=== PATIENT | male | born 1970 | race Hispanic/Latino ===

== ENCOUNTER 2020-02-09 22:44 | Observation (INO) | payer OTHER ==
[~2020-02-09] VITALS: Ht 180.3 cm; Wt 122.5 kg
[2020-02-09 23:06] LABS: BASOPHILS % 0.4 % (0.0-1.0); EOSINOPHILS # (AUTO) 0.1 (0.0-0.4); EOSINOPHILS % 1.1 % (0.0-6.0); HEMATOCRIT 41.4 % (38.2-49.6); HEMOGLOBIN 13.8 g/dL (14.0-18.0); LYMPHOCYTES # (AUTO) 2.1 (1.0-3.2); LYMPHOCYTES % 24.7 % (18.0-39.1); MEAN CORPUSCULAR HEMOGLOBIN 28.5 pg (28-32); MEAN CORPUSCULAR HGB CONC 33.3 g/dL (31-35); MEAN CORPUSCULAR VOLUME 85.4 fL (81-99); MONOCYTES # (AUTO) 0.7 (0.2-0.8); MONOCYTES % 8.3 % (4.4-11.3); NEUTROPHILS # (AUTO) 5.6 (2.1-6.9); RED BLOOD COUNT 4.85 x10e6/uL (4.3-5.7); RED CELL DISTRIBUTION WIDTH 13.7 % (11.7-14.4)
[2020-02-09 23:09] LABS: PLATELET COUNT 8 x10e3/uL (140-360)
[2020-02-09 23:23] LABS: ALANINE AMINOTRANSFERASE 27 IU/L (0-55); ALBUMIN 4.4 g/dL (3.5-5.0); ANION GAP 14.9 mmol/L (8-16); BLOOD UREA NITROGEN 14 mg/dL (7-26); BUN/CREATININE RATIO 15 (6-25); CALCIUM 9.4 mg/dL (8.4-10.2); CARBON DIOXIDE 21 mmol/L (22-29); CHLORIDE 111 mmol/L (98-107); CREATININE, SERUM 0.91 mg/dL (0.72-1.25); EST GLOMERULAR FILTRATION RATE > 60 ML/MIN (60-); GLUCOSE 131 mg/dL (74-118); POTASSIUM 3.9 mmol/L (3.5-5.1); SODIUM 143 mmol/L (136-145)
[2020-02-09 23:24] LABS: ALBUMIN/GLOBULIN RATIO 1.6 (0.8-2.0); ALKALINE PHOSPHATASE 56 IU/L (40-150)
--- OUTSIDE RECORDS SUMMARY | 2020-02-09 23:43 | XMS REPORT | Continuity of Care Document ---
Author Author [facility] Organization [facility] Address [address] [place] [address] Phone Unavailable Care Team Providers Care Operations And Maintenance Supervisor Name Role Phone NONSTAFF PCP Unavailable Deysi SHEARER Attphyajit Unavailable Payers Payer Name Policy Type Policy Number Effective Date Expiration Date Ajit Barbour o [id number] 2017 00:00:00 [facility] Problems This patient has no known problems. Allergies, Adverse Reactions, Alerts Allergy Name Allergy Type Status Severity Reaction(s) Onset Date Inacti ve Date Treating Clinician Comments Source No Known Allergies DA Active U 2019-11-08 00:00:00 [facility] No Known Allergies DA Active U 2016-10-02 00:00:00 [facility] Medications This patient has no known medications. Procedures Procedure Date / Time Performed Performing Clinician Sourc e Computed tomography of abdomen and pelvis with contrast 2018 00:00:00 BAUTISTA MAN [facility] Encounters Start Date/Time End Date/Time Encounter Type Admission Type Attendi [facility] Care Department Encounter ID Source 2018-11-29 16:32:00 2018-11-29 20:40:00 Departed Emergency Room 1 ZEHRA SHEARER [facility] [id number] [facility] Results Test Description Test Time Test Comments Results Result Comments Source GLUBED 2019-11-11 15:52:00 Test Item GLUBED (test code = GLUBED) 229 mg/dL 70-110 H [id number] 11:05:00* Test Item Value Reference Range Interpretation Comments GLUBED (test code = GLUBED) 141 mg/dL 70-110 H [id number] 07:07:00* Test Item Value Reference Range Interpretation Comments GLUBED (test code = GLUBED) 116 mg/dL 70-110 H [id number] 21:08:00* Test Item Value Reference Range Interpretation Comments GLUBED (test code = GLUBED) 239 mg/dL 70-110 H [id number] 15:36:00* Test Item Value Reference Range Interpretation Comments GLUBED (test code = GLUBED) 306 mg/dL 70-110 H [id number] 11:38:00* Test Item Value Reference Range Interpretation Comments GLUBED (test code = GLUBED) 142 mg/dL 70-110 H [id number] 07:48:00* Test Item Value Reference Range Interpretation Comments GLUBED (test code = GLUBED) 101 mg/dL 70-110 N BASIC METABOLIC [id number] 05:36:00* Test Item Value Reference Range Interpretation Comments SODIUM (test code = NA) 136 mmol/l 134.0-147.0 N POTASSIUM (test code = K) 4.0 mmol/L 3.6-5.2 N CHLORIDE (test code = CL) 103 mmol/l 98.0-107.0 N CARBON DIOXIDE (test code = CO2) 26.2 mmol/l 21.0-33.0 N ANION GAP (test code = GAP) 10.8 0-20 N GLUCOSE (test code = GLU) 129 mg/dl 70.0-110.0 H BLOOD UREA NITROGEN (test code = BUN) 15 mg/dl 7.0-18.0 N CREATININE (test code = CREAT) 0.91 mg/dL 0.60-1.30 N GFR NON BLACK (test code = GFRNONBLACK) 94 mL/min 95-105 L GFR BLACK (test code = GFRBLACK) 114 mL/min 115-127 L CALCIUM (test code = CA) 8.4 mg/dl 8.0-10.5 N [id number] 20:35:00* Test Item Value Reference Range Interpretation Comments GLUBED (test code = GLUBED) 214 mg/dL 70-110 H [id number] 15:22:00* Test Item Value Reference Range Interpretation Comments GLUBED (test code = GLUBED) 237 mg/dL 70-110 H [id number] 11:31:00* Test Item Value Reference Range Interpretation Comments GLUBED (test code = GLUBED) 164 mg/dL 70-110 H [id number] 07:37:00* Test Item Value Reference Range Interpretation Comments GLUBED (test code = GLUBED) 116 mg/dL 70-110 H [id number] 20:30:00* Test Item Value Reference Range Interpretation Comments GLUBED (test code = GLUBED) 215 mg/dL 70-110 H [id number] 16:36:00* Test Item Value Reference Range Interpretation Comments GLUBED (test code = GLUBED) 269 mg/dL 70-110 H LACTIC DEHYDROGENASE(LDH)2019-11-08 14:31:00* Test Item Value Reference Range Interpretation Comments LACTIC DEHYDROGENASE(LDH) (test code = LDH) 476 Units/L 81-234 H [id number] 14:31:00* Test Item Value Reference Range Interpretation Comments FERRITIN (test code = STEFANO) 1760 ng/mL 23.9-336.2 H C REACTIVE [id number] 13:56:00* Test Item Value Reference Range Interpretation Comments C REACTIVE PROTEIN (test code = CRP) 4.7 mg/dL 0.0-0.9 H PLEASE MAKE NOTE OF NEW CRP REFERENCE RANGE D-[id number] 12:42:00* Test Item Value Reference Range Interpretation Comments D-DIMER/FSP (test code = DDIMER) 558 ng/mLFEU 0-500 HH Thrombosis and/or Pulmonary Embolism and the clinicalcut-off value for exclusion (500 ng/mL FEU) of theseconditions is validated by the metallurgical technician of the method. A negative D- Dimer result when combined with a clinicalassessment of low pretest probability has been shown to havea high negative predictive value of DVT or PE. D-Dimer values >500 ng/mL FEU are not diagnostic for DVT,PE, or DIC without other confirmatory tests and appropriateclinical evaluations. - XR CHEST 1 [id number] 12:24:00 FAX: Shital Hutchinson MD [phone] [place]: EM St: ADM FAX: Cecilia Turk [phone] Name: ADDISON BALTAZAR [facility] : 1970 Age/S: 49/M [address] [facility] Unit #: [id number] Loc: [address] [place] [address] Phys: [place] [id number] Acct: [id number] Dis Date: Status: ADM IN PHONE #: [phone] Exam Date: 11/08/2019 1210 FAX #: [phone] Reason: covid penumonia EXAMS: CPT CODE: [id number] XR CHEST 1 V 82979 EXAMINATION: - XR CHEST 1 V. LOCATION: U19. HISTORY: COVID pneumonia, hypoxia. COMPARISON: Chest x-ray 11/04/19. FINDINGS: Examination is limited due to portable technique and patient body habitus. Cardiac silhouette/Mediastinal contour: Persistent enlargement of cardiac silhouette. Atherosclerotic calcification of aortic arch. Lungs: Minimal interval worsening of bilateral diffuse scattered ill-defined interstitial airspace opacities. No large pleural effusion. Osseous Structures: Mild degenerative changes affect thoracic spine. Additional Findings: None. IMPRESSION: Minimal interval worsening of bilateral diffuse scattered ill-defined interstitial airspace o pacities, concerning for infectious/atypical viral etiology. at 1224 Reported and s igned by: Denisha Love M.D. CC: Shital Hutchinson MD; Brigette hoover MD Technologist: SOHA DIAZ Trnscrd Date/Time/By: 11/08/2019 (5344) : By: AnaisANS4 PAGE 1 Signed Report FAX: Shital Hutchinson MD [phone] [place]: St: ADM FAX: Cecilia Sr [phone] Name: ADDISON BALTAZAR [facility] : 1970 Age/S: 49/M [address] [facility] Unit #: [id number] Loc: [address] [place] [address] Phys: [place] [id number] Acct: [id number] Dis Date: Status: ADM IN PHONE #: [phone] Exam Date: 11/08/2019 FAX #: [phone] Reason: covid neyonia EXAMS: CPT CODE: [id number] XR CHEST 1 V 12584 <Continued> Orig Print D/T: S: 11/08/2019 (8781) PAGE 2 Signed Report [id number] 11:57:00* Test Item Value Reference Range Interpretation Comments GLUBED (test code = GLUBED) 127 mg/dL 70-110 H PROTHROMBIN [id number] 10:00:00* Test Item Value Reference Range Interpretation Comments PROTHROMBIN TIME PATIENT (test code = PTP) 13.8 SECONDS 9.9-12.8 H INTERNATIONAL NORMAL RATIO (test code = INR) 1.2 0.89-1.14 H THE INR IS TO BE USED ONLY FOR MONITORING ORAL ANTICOAGULANTTHERAPY. THE FOLLOWING ARE SUGGESTED RANGES FROM THEAMERICAN COLLEGE OF CHEST PHYSICIANS:INDICATION INR VALUEPROPHYLAXIS OF VENOUS THROMBOSIS (ORTHOPEDIC SURGERY) 2.0 - 3.0PROPHYLAXIS OF VENOUS THROMBOSIS (OTHER THAN HIGH-RISK SURGERY) 2.0 - 3.0TREATMENT OF DEEP VEIN THROMBOSIS OR PULMONARY EMBOLISM 2.0 - 3.0PREVENTION OF SYSTEMIC EMBOLISM TISSUE HEART VALVES 2.0 - 3.0 ACUTE MYOCARDIAL INFARCTION (TO PREVENT SYSTEMIC EMBOLISM) 2.0 - 3.0 ACUTE MYOCARDIAL INFARCTION (TO PREVENT RECURRENT INFARCT) 2.5 - 3.0 VALVULAR HEART DISEASE 2.0 - 3.0 ATRIAL FIBRILATION 2.0 - 3.0BILEAFLET MECHANICAL VALVE IN AORTIC POSITION 2.0 - 3.0MECHANICAL PROSTHETIC VALVES (HIGH RISK) 2.5 - 3.5PRESENCE OF LUPUS ANTICOAGULANT OR ANTIPHOSPHOLIPID ANTIBODIES 2.5 - 3.5 Is patient on anticoagulants? YIf yes, list anticoagulants: ENOXAPRIN [id number] 09:56:00* Test Item Value Reference Range Interpretation Comments [id number] (test code = [id number]) POSITIVE Negative A Note: this entry is for TRACKING purposes only and the testwas done outside [facility] Healthcare, the performing entity isfound in specimen comments.Note: this entry is for TRACKING purposes only and the testwas done outside [facility] Healthcare, the performing entity isfound in specimen comments. The test was performed at: [place]: 11/04/19Patient's account number from [facility]: [id number] patient's current lab results are: Positive [id number] 08:18:00* Test Item Value Reference Range Interpretation Comments GLUBED (test code = GLUBED) 112 mg/dL 70-110 H COMPREHENSIVE METABOLIC [id number] 08:15:00* Test Item Value Reference Range Interpretation Comments SODIUM (test code = NA) 141 mmol/l 134.0-147.0 N POTASSIUM (test code = K) 3.4 mmol/L 3.6-5.2 L CHLORIDE (test code = CL) 104 mmol/l 98.0-107.0 N CARBON DIOXIDE (test code = CO2) 28.9 mmol/l 21.0-33.0 N ANION GAP (test code = GAP) 11.5 0-20 N GLUCOSE (test code = GLU) 122 mg/dl 70.0-110.0 H BLOOD UREA NITROGEN (test code = BUN) 17 mg/dl 7.0-18.0 N CREATININE (test code = CREAT) 0.86 mg/dL 0.60-1.30 N GFR NON BLACK (test code = GFRNONBLACK) 100 mL/min 95-105 N GFR BLACK (test code = GFRBLACK) 121 mL/min 115-127 N TOTAL PROTEIN (test code = PROT) 6.6 gm/dL 6.4-8.2 N ALBUMIN (test code = ALB) 2.8 gm/dl 3.2-4.7 L CALCIUM (test code = CA) 8.9 mg/dl 8.0-10.5 N BILIRUBIN TOTAL (test code = BILT) 0.2 mg/dl 0.0-1.0 N SGOT/AST (test code = AST) 32 Units/L 15.0-37.0 N SGPT/ALT (test code = ALT) 40 Units/L 12.0-78.0 N ALKALINE PHOSPHATASE TOTAL (test code = ALKP) 47 Units/L 50.0-136 .0 L [id number] 07:46:00* Test Item Value Reference Range Interpretation Comments HEMATOCRIT (test code = HCT) 42.7 % 36.0-48.0 N [id number] 20:08:00* Test Item Value Reference Range Interpretation Comments GLUBED (test code = GLUBED) 218 mg/dL 74-106 H Performed by certified chainstitch sewing machine operator at [facility] [id number] 16:21:00* Test Item Value Reference Range Interpretation Comments GLUBED (test code = GLUBED) 220 mg/dL 74-106 H Performed by certified chainstitch sewing machine operator at [facility] [id number] 12:08:00* Test Item Value Reference Range Interpretation Comments GLUBED (test code = GLUBED) 170 mg/dL 74-106 H Performed by certified chainstitch sewing machine operator at [facility] COMPREHENSIVE METABOLIC [id number] 11:50:00* Test Item Value Reference Range Interpretation Comments SODIUM (test code = NA) 141 mmol/L 136-145 N POTASSIUM (test code = K) 3.9 mmol/L 3.5-5.1 N CHLORIDE (test code = CL) 107.0 mmol/L 98-107 N CARBON DIOXIDE (test code = CO2) 29.0 mmol/L 21-32 N ANION GAP (test code = GAP) 8.9 10-20 L GLUCOSE (test code = GLU) 167 mg/dL 74-106 H BLOOD UREA NITROGEN (test code = BUN) 17 mg/dL 7-18 N GLOMERULAR FILTRATION RATE (test code = GFR) > 60 mL/min >=60 Estimated GFR by using Modified MDRD formula.Chronic kidney disease is defined as either kidney damageor GFR <60 mL/min/1.73 m2 for >3 months. CREATININE (test code = CREAT) 0.70 mg/dL 0.7-1.3 N BUN/CREATININE RATIO (test code = BUN/CREA) 24.7 10-20 H TOTAL PROTEIN (test code = PROT) 7.1 gram/dL 6.4-8.2 N ALBUMIN (test code = ALB) 2.9 g/dL 3.4-5.0 L GLOBULIN (test code = GLOB) 4.2 gram/dL 2.7-4.2 N ALBUMIN/GLOBULIN RATIO (test code = A/G) 0.7 0.75-1.50 L CALCIUM (test code = CA) 8.5 mg/dL 8.5-10.1 N BILIRUBIN TOTAL (test code = BILT) 0.40 mg/dL 0.0-1.0 N SGOT/AST (test code = AST) 32 IUnit/L 15-37 N SGPT/ALT (test code = ALT) 33 IUnit/L 12-78 N ALKALINE PHOSPHATASE TOTAL (test code = ALKP) 51 IUnit/L 45-117 N Note change in reference range due to change in reagent. COMPREHENSIVE METABOLIC [id number] 11:38:00* Test Item Value Reference Range Interpretation Comments SODIUM (test code = NA) 141 mmol/L 136-145 N POTASSIUM (test code = K) 3.9 mmol/L 3.5-5.1 N CHLORIDE (test code = CL) 107.0 mmol/L 98-107 N CARBON DIOXIDE (test code = CO2) mmol/L 21-32 ANION GAP (test code = GAP) 10-20 GLUCOSE (test code = GLU) mg/dL 74-106 BLOOD UREA NITROGEN (test code = BUN) mg/dL 7-18 GLOMERULAR FILTRATION RATE (test code = GFR) mL/min >=60 CREATININE (test code = CREAT) mg/dL 0.7-1.3 BUN/CREATININE RATIO (test code = BUN/CREA) 10-20 TOTAL PROTEIN (test code = PROT) gram/dL 6.4-8.2 ALBUMIN (test code = ALB) g/dL 3.4-5.0 GLOBULIN (test code = GLOB) gram/dL 2.7-4.2 ALBUMIN/GLOBULIN RATIO (test code = A/G) 0.75-1.50 CALCIUM (test code = CA) mg/dL 8.5-10.1 BILIRUBIN TOTAL (test code = BILT) mg/dL 0.0-1.0 SGOT/AST (test code = AST) IUnit/L 15-37 SGPT/ALT (test code = ALT) IUnit/L 12-78 ALKALINE PHOSPHATASE TOTAL (test code = ALKP) IUnit/L 45-117 [id number] 08:57:00* Test Item Value Reference Range Interpretation Comments GLUBED (test code = GLUBED) 157 mg/dL 74-106 H Performed by certified chainstitch sewing machine operator at [facility] [id number] 04:46:00* Test Item Value Reference Range Interpretation Comments GLUBED (test code = GLUBED) 202 mg/dL 74-106 H Performed by certified chainstitch sewing machine operator at [facility] [id number] 20:06:00* Test Item Value Reference Range Interpretation Comments GLUBED (test code = GLUBED) 292 mg/dL 74-106 H Performed by certified chainstitch sewing machine operator at [facility] [id number] 16:35:00* Test Item Value Reference Range Interpretation Comments GLUBED (test code = GLUBED) 195 mg/dL 74-106 H Performed by certified chainstitch sewing machine operator at [facility] [id number] 13:20:00* Test Item Value Reference Range Interpretation Comments GLUBED (test code = GLUBED) 174 mg/dL 74-106 H Performed by certified chainstitch sewing machine operator at [facility] [id number] 10:57:00* Test Item Value Reference Range Interpretation Comments GLUBED (test code = GLUBED) 190 mg/dL 74-106 H Performed by certified chainstitch sewing machine operator at [facility] COMPREHENSIVE METABOLIC [id number] 07:25:00* Test Item Value Reference Range Interpretation Comments SODIUM (test code = NA) 140 mmol/L 136-145 N POTASSIUM (test code = K) 4.5 mmol/L 3.5-5.1 N CHLORIDE (test code = CL) 106.0 mmol/L 98-107 N CARBON DIOXIDE (test code = CO2) 26.0 mmol/L 21-32 N ANION GAP (test code = GAP) 12.5 10-20 N GLUCOSE (test code = GLU) 163 mg/dL 74-106 H BLOOD UREA NITROGEN (test code = BUN) 16 mg/dL 7-18 N GLOMERULAR FILTRATION RATE (test code = GFR) > 60 mL/min >=60 Estimated GFR by using Modified MDRD formula.Chronic kidney disease is defined as either kidney damageor GFR <60 mL/min/1.73 m2 for >3 months. CREATININE (test code = CREAT) 0.70 mg/dL 0.7-1.3 N BUN/CREATININE RATIO (test code = BUN/CREA) 21.6 10-20 H TOTAL PROTEIN (test code = PROT) 7.8 gram/dL 6.4-8.2 N ALBUMIN (test code = ALB) 3.2 g/dL 3.4-5.0 L GLOBULIN (test code = GLOB) 4.6 gram/dL 2.7-4.2 H ALBUMIN/GLOBULIN RATIO (test code = A/G) 0.7 0.75-1.50 L CALCIUM (test code = CA) 8.8 mg/dL 8.5-10.1 N BILIRUBIN TOTAL (test code = BILT) 0.40 mg/dL 0.0-1.0 N SGOT/AST (test code = AST) 38 IUnit/L 15-37 H SGPT/ALT (test code = ALT) 39 IUnit/L 12-78 N ALKALINE PHOSPHATASE TOTAL (test code = ALKP) 51 IUnit/L 45-117 N Note change in reference range due to change in reagent. COMPREHENSIVE METABOLIC [id number] 07:08:00* Test Item Value Reference Range Interpretation Comments SODIUM (test code = NA) 140 mmol/L 136-145 N POTASSIUM (test code = K) 4.5 mmol/L 3.5-5.1 N CHLORIDE (test code = CL) 106.0 mmol/L 98-107 N CARBON DIOXIDE (test code = CO2) mmol/L 21-32 ANION GAP (test code = GAP) 10-20 GLUCOSE (test code = GLU) mg/dL 74-106 BLOOD UREA NITROGEN (test code = BUN) mg/dL 7-18 GLOMERULAR FILTRATION RATE (test code = GFR) mL/min >=60 CREATININE (test code = CREAT) mg/dL 0.7-1.3 BUN/CREATININE RATIO (test code = BUN/CREA) 10-20 TOTAL PROTEIN (test code = PROT) gram/dL 6.4-8.2 ALBUMIN (test code = ALB) g/dL 3.4-5.0 GLOBULIN (test code = GLOB) gram/dL 2.7-4.2 ALBUMIN/GLOBULIN RATIO (test code = A/G) 0.75-1.50 CALCIUM (test code = CA) mg/dL 8.5-10.1 BILIRUBIN TOTAL (test code = BILT) mg/dL 0.0-1.0 SGOT/AST (test code = AST) IUnit/L 15-37 SGPT/ALT (test code = ALT) IUnit/L 12-78 ALKALINE PHOSPHATASE TOTAL (test code = ALKP) IUnit/L 45-117 [id number] 20:21:00* Test Item Value Reference Range Interpretation Comments GLUBED (test code = GLUBED) 155 mg/dL 74-106 H Performed by certified chainstitch sewing machine operator at [facility] [id number] 18:40:00* Test Item Value Reference Range Interpretation Comments GLUBED (test code = GLUBED) 127 mg/dL 74-106 H Performed by certified chainstitch sewing machine operator at [facility] COMPREHENSIVE METABOLIC [id number] 13:14:00* Test Item Value Reference Range Interpretation Comments SODIUM (test code = NA) 138 mmol/L 136-145 N POTASSIUM (test code = K) 4.1 mmol/L 3.5-5.1 N CHLORIDE (test code = CL) 106.0 mmol/L 98-107 N CARBON DIOXIDE (test code = CO2) 20.0 mmol/L 21-32 L ANION GAP (test code = GAP) 16.1 10-20 N GLUCOSE (test code = GLU) 122 mg/dL 74-106 H BLOOD UREA NITROGEN (test code = BUN) 15 mg/dL 7-18 N GLOMERULAR FILTRATION RATE (test code = GFR) > 60 mL/min >=60 Estimated GFR by using Modified MDRD formula.Chronic kidney disease is defined as either kidney damageor GFR <60 mL/min/1.73 m2 for >3 months. CREATININE (test code = CREAT) 0.80 mg/dL 0.7-1.3 N BUN/CREATININE RATIO (test code = BUN/CREA) 19.8 10-20 N TOTAL PROTEIN (test code = PROT) 7.6 gram/dL 6.4-8.2 N ALBUMIN (test code = ALB) 3.1 g/dL 3.4-5.0 L GLOBULIN (test code = GLOB) 4.5 gram/dL 2.7-4.2 H ALBUMIN/GLOBULIN RATIO (test code = A/G) 0.7 0.75-1.50 L CALCIUM (test code = CA) 8.6 mg/dL 8.5-10.1 N BILIRUBIN TOTAL (test code = BILT) 0.50 mg/dL 0.0-1.0 N SGOT/AST (test code = AST) 39 IUnit/L 15-37 H SGPT/ALT (test code = ALT) 39 IUnit/L 12-78 N ALKALINE PHOSPHATASE TOTAL (test code = ALKP) 47 IUnit/L 45-117 N Note change in reference range due to change in reagent. [id number] 13:13:00* Test Item Value Reference Range Interpretation Comments GLUBED (test code = GLUBED) 134 mg/dL 74-106 H Performed by certified chainstitch sewing machine operator at [facility] [id number] 05:33:00* Test Item Value Reference Range Interpretation Comments GLYCOSYLATED HEMOGLOBIN (HA1C) (test code = GLYHGB) 6.6 % HbA1 SUGGESTED DIAGNOSIS: HbA1C (%) Diabetic >6.4Prediabetes 5.7 - 6.4Normal <5.7 ESTIMATED AVERAGE GLUCOSE (test code = EAG) 143 MG/DL CBC W/O [id number] 05:07:00* Test Item Value Reference Range Interpretation Comments WHITE BLOOD CELL (test code = WBC) 5.1 K/mm3 4.5-12.5 N RED BLOOD CELL (test code = RBC) 4.60 mill/mm3 4.0-5.8 N HEMOGLOBIN (test code = HGB) 13.4 gram/dL 13.0-17.5 N HEMATOCRIT (test code = HCT) 40.3 % 42.0-52.0 L MEAN CELL VOLUME (test code = MCV) 87.6 fL 80-98 N MEAN CELL HGB (test code = MCH) 29.1 picogram 27.0-33.0 N MEAN CELL HGB CONCETRATION (test code = MCHC) 33.3 gram/dL 33.0-36. 0 N RED CELL DISTRIBUTION WIDTH (test code = RDW) 13.7 % 11.6-16. 2 N PLATELET COUNT (test code = PLT) 192 K/mm3 150-450 N MEAN PLATELET VOLUME (test code = MPV) 9.7 fL 6.7-11.0 N URINALYSIS [id number] 21:52:00* Test Item Value Reference Range Interpretation Comments UA COLOR (test code = COLU) YELLOW YELLOW UA APPEARANCE (test code = APPU) CLEAR CLEAR UA GLUCOSE DIPSTICK (test code = DGLUU) >1000 (4+) mg/dL NEGATIVE UA BILIRUBIN DIPSTICK (test code = BILU) NEGATIVE mg/dL NEGATIVE UA KETONE DIPSTICK (test code = KETU) 60 (2+) mg/dL NEGATIVE A UA SPECIFIC GRAVITY (test code = SGU) 1.041 1.001-1.035 UA BLOOD DIPSTICK (test code = ERIN) Negative mg/dL NEGATIVE UA PH DIPSTICK (test code = KRISTINA) 5.5 5.0-8.0 UA PROTEIN DIPSTICK (test code = PROU) 30 (1+) mg/dL NEGATIVE A UA UROBILINIOGEN DIPSTICK (test code = URO) Normal mg/dL NEGATIVE UA NITRITE DIPSTICK (test code = ULYSSES) NEGATIVE NEGATIVE UA LEUKOCYTE ESTERASE W REFLEX (test code = LEUUR) NEGATIVE Opal/uL NEGATIVE UA WBC (test code = WBCU) 0-5 per HPF 0-5 UA RBC (test code = RBCU) 11-20 #/HPF 0-5 A UA EPITHELIAL CELLS (test code = EPIU) FEW per HPF FEW UA BACTERIA (test code = BACU) NONE SEEN #/HPF NONE UA MUCUS (test code = MUCU) FEW #/LPF FEW Urine Source? Clean [id number] 21:07:00* Test Item Value Reference Range Interpretation Comments GLUBED (test code = GLUBED) 114 mg/dL 74-106 H Performed by certified chainstitch sewing machine operator at [facility] COVID 19 INHOUSE [id number] 15:21:00* Test Item Value Reference Range Interpretation Comments COVID 19 INHOUSE AG (test code = [id number]) POSITIVE Is patient requiring admission or transfer? YIndication for rapid COVID-19 testi ng: Mod Clinical SuspicionHEPATIC FUNCTION [id number] 13:27:00* Test Item Value Reference Range Interpretation Comments TOTAL PROTEIN (test code = PROT) 7.9 gram/dL 6.4-8.2 N ALBUMIN (test code = ALB) 3.3 g/dL 3.4-5.0 L GLOBULIN (test code = GLOB) 4.6 gram/dL 2.7-4.2 H ALBUMIN/GLOBULIN RATIO (test code = A/G) 0.7 0.75-1.50 L BILIRUBIN TOTAL (test code = BILT) 0.50 mg/dL 0.0-1.0 N BILIRUBIN DIRECT (test code = BILD) 0.19 mg/dL 0.0-0.20 N SGOT/AST (test code = AST) 46 IUnit/L 15-37 H SGPT/ALT (test code = ALT) 44 IUnit/L 12-78 N ALKALINE PHOSPHATASE TOTAL (test code = ALKP) 45 IUnit/L 45-117 N Note change in reference range due to change in reagent. BASIC METABOLIC [id number] 13:23:00* Test Item Value Reference Range Interpretation Comments SODIUM (test code = NA) 138 mmol/L 136-145 N POTASSIUM (test code = K) 4.1 mmol/L 3.5-5.1 N CHLORIDE (test code = CL) 104.0 mmol/L 98-107 N CARBON DIOXIDE (test code = CO2) 20.0 mmol/L 21-32 L ANION GAP (test code = GAP) 18.1 10-20 N GLUCOSE (test code = GLU) 87 mg/dL 74-106 N BLOOD UREA NITROGEN (test code = BUN) 14 mg/dL 7-18 N GLOMERULAR FILTRATION RATE (test code = GFR) > 60 mL/min >=60 Estimated GFR by using Modified MDRD formula.Chronic kidney disease is defined as either kidney damageor GFR <60 mL/min/1.73 m2 for >3 months. CREATININE (test code = CREAT) 0.80 mg/dL 0.7-1.3 N BUN/CREATININE RATIO (test code = BUN/CREA) 17.8 10-20 N CALCIUM (test code = CA) 8.8 mg/dL 8.5-10.1 N [id number] 13:23:00* Test Item Value Reference Range Interpretation Comments TROPONIN-I (test code = TROPI) <0.015 ng/mL 0-0.045 N LACTIC [id number] 13:23:00* Test Item Value Reference Range Interpretation Comments LACTIC ACID (test code = LACT) 1.1 mmol/L 0.4-1.9 N BASIC METABOLIC [id number] 13:15:00* Test Item Value Reference Range Interpretation Comments SODIUM (test code = NA) 138 mmol/L 136-145 N POTASSIUM (test code = K) 4.1 mmol/L 3.5-5.1 N CHLORIDE (test code = CL) 104.0 mmol/L 98-107 N CARBON DIOXIDE (test code = CO2) mmol/L 21-32 ANION GAP (test code = GAP) 10-20 GLUCOSE (test code = GLU) mg/dL 74-106 BLOOD UREA NITROGEN (test code = BUN) mg/dL 7-18 GLOMERULAR FILTRATION RATE (test code = GFR) mL/min >=60 CREATININE (test code = CREAT) mg/dL 0.7-1.3 BUN/CREATININE RATIO (test code = BUN/CREA) 10-20 CALCIUM (test code = CA) mg/dL 8.5-10.1 [id number] 13:15:00* Test Item Value Reference Range Interpretation Comments TROPONIN-I (test code = TROPI) ng/mL 0-0.045 - XR CHEST 1 [id number] 13:12:00 FAX: Sharmaine Phipps DO [place]: [address]: PRE Name: Karan ADDISON SALEEM [facility] : [birth year] Age/S: 49/M [address] [facility] Unit #: [id number] Loc: [place] [id number] Phys: Sharamine Phipps DO Acct: [id number] Dis Date: Status: PRE ER PHONE #: [phone] Exam Date: 11/04/2019 1310 FAX #: [phone] Reason: CHEST PAIN EXAMS: CPT CODE: [id number] XR CHEST 1 V 36386 HISTORY: Chest pain. COMPARISON: None available. Location: [facility]. Patchy b ilateral groundglass infiltrates. Dependent changes. No effusion or conges tion. Cardiomegaly. IMPRESSION: Patchy groundg lass infiltrates. Electronically Signed by Hawa Sandoval on 10/25 at 1312 Reported and signed by: Will Retana CC: Sharmaine Phipps DO Technologist: ERWIN WALKER) Hany nscrd Date/Time/By: 11/04/2019 (6850) : By: [email or web address] Orig Print D/T: S: 11/04/2019 (6335) PAGE 1 Nettie d Report CBC W/O [id number] 12:59:00* Test Item Value Reference Range Interpretation Comments WHITE BLOOD CELL (test code = WBC) 5.5 K/mm3 4.5-12.5 N RED BLOOD CELL (test code = RBC) 4.86 mill/mm3 4.0-5.8 N HEMOGLOBIN (test code = HGB) 14.2 gram/dL 13.0-17.5 N HEMATOCRIT (test code = HCT) 42.6 % 42.0-52.0 N MEAN CELL VOLUME (test code = MCV) 87.7 fL 80-98 N MEAN CELL HGB (test code = MCH) 29.2 picogram 27.0-33.0 N MEAN CELL HGB CONCETRATION (test code = MCHC) 33.3 gram/dL 33.0-36. 0 N RED CELL DISTRIBUTION WIDTH (test code = RDW) 13.7 % 11.6-16. 2 N PLATELET COUNT (test code = PLT) 191 K/mm3 150-450 N MEAN PLATELET VOLUME (test code = MPV) 9.8 fL 6.7-11.[address] ABDOMEN/PELVIS [id number] 20:07:00 [facility] [address] [address] Patient Name: ADDISON BALTAZAR JR MR #: [id number] : 1970 Age/Sex: 48/M Req #: [id number] Adm Physician: Ordered by: BAUTISTA MAN NP Report #: [id number] Location: ER Room/Bed: Procedure: [id number] CT/C T ABDOMEN/PELVIS W Exam Date: 11/29/18 Exam Time: 18 30 REPORT STATUS: Signed EXAMINA TION: CT of the abdomen and pelvis with contrast. TECHNIQUE: Spiral CT i mages of the abdomen and pelvis were performed from the lung bases to the less er trochanters after the intravenous administration of 100 cc of Isovue 370 an d the oral administration of water. Coronal and sagittal reformatted images w ere obtained. COMPARISON: None. CLINICAL HISTORY:Right lower quadrant abdominal pain, suspect appendicitis DISCUSSION: ABDOMEN/PELVIS: LOWER THORAX:Unremarkable. HEPATOBILIARY: The liver is enlarged, lucas uring 18 cm in the right mid clavicular line and shows diffusely decreased att enuation, consistent with diffuse steatosis. No focal lesions. No intra or ex trahepatic biliary ductal dilation. GALLBLADDER: No radio-opaque stones o r sludge. No wall thickening. SPLEEN: No splenomegaly. PANCREAS: No f ocal masses or ductal dilatation. ADRENALS: No adrenal nodules. KIDNE YS/URETERS: No hydronephrosis, stones, or solid mass lesions. PELVIC ORGANS /BLADDER: Bladder and prostate are unremarkable. PERITONEUM/RETROPERITONEUM : No free air or fluid. LYMPH NODES: No intra-abdominal, retroperitoneal, p elvic or inguinal lymphadenopathy. VESSELS: The celiac trunk,superior and inferior mesenteric and bilateral renal arteries are patent The portal, sup erior mesenteric and splenic veins are patent. GI TRACT: No bowel dilatio n or evidence of obstruction. Appendix is well identified and normal in calibe r (series 2, image 59). No periappendiceal or pericecal inflammatory changes. A few scattered diverticula of the sigmoid colon, without diverticulitis. BONES AND SOFT TISSUE: No aggressive lytic lesions. Soft tissues are grossly unremarkable. No soft tissue abnormalities. IMPRESSION: 1. No a cute abdominopelvic abnormalities. Specifically, no acute findings in the righ t lower quadrant to explain the patient's pain. No CT evidence of appendicitis . Signed by: Dr. Rl Hung M.D. on 11/29/2018 8:13 PM Dictate d By: RL UHNG MD 12 Transcribed By: JOB on 11/29/182012 COPY TO: BAUTISTA MAN NP Urine [id number] 18:31:00* Test Item Value Reference Range Interpretation Comments Urine WBC (test code = 5821-4) NONE 0-5 [facility] [id number] 18:31:00* Test Item Value Reference Range Interpretation Comments Urine RBC (test code = 20830-1) 0-5 0-5 [facility]own[facility] [id number] 18:31:00* Test Item Value Reference Range Interpretation Comments Urine Bacteria (test code = 47126-3) FEW NONE [facility]own[facility] Epithelial [id number] 18:31:00 * Test Item Value Reference Range Interpretation Comments Urine Epithelial Cells (test code = 81323-5) FEW NONE [facility] Hyaline [id number] 18:31:00* Test Item Value Reference Range Interpretation Comments Urine Hyaline Casts (test code = 14645-6) 2-5 0-1 H [facility]ownAmylase [id number] 18:19:00* Test Item Value Reference Range Interpretation Comments Amylase Level (test code = 1798-8) 34 25-125 [facility]ownLipase2019-08-05 18:19:00* Test Item Value Reference Range Interpretation Comments Lipase (test code = 3040-3) 15 8-78 [facility]own[facility] [id number] 18:12:00* Test Item Value Reference Range Interpretation Comments Urine Color (test code = 5778-6) YELLOW YELLOW [facility] [id number] 18:12:00* Test Item Value Reference Range Interpretation Comments Urine Clarity (test code = 82829-4) SL CLOUDY CLEAR H [facility]ownUrine Specific [id number] 18:12:00 * Test Item Value Reference Range Interpretation Comments Urine Specific [place] (test code = 5811-5) 1.025 1.010-1.02 5 [facility]ownU[facility] [id number] 18:12:00* Test Item Value Reference Range Interpretation Comments Urine pH (test code = 89756-5) 6 5-7 [facility] Leukocyte [id number] 18:12:00* Test Item Value Reference Range Interpretation Comments Urine Leukocyte Esterase (test code = 5799-2) NEGATIVE NEGATIVE [facility]own[facility] [id number] 18:12:00* Test Item Value Reference Range Interpretation Comments Urine Nitrite (test code = 60427-4) NEGATIVE NEGATIVE [facility]own[facility] [id number] 18:12:00* Test Item Value Reference Range Interpretation Comments Urine Protein (test code = 5804-0) NEGATIVE NEGATIVE [facility] Glucose (UA)2018-11-29 18:12:00* Test Item Value Reference Range Interpretation Comments Urine Glucose (UA) (test code = 2349-9) 3+ NEGATIVE H [facility]own[facility] [id number] 18:12:00* Test Item Value Reference Range Interpretation Comments Urine Ketones (test code = 92045-2) TRACE NEGATIVE H [facility]own[facility]rine [id number] 18:12:00* Test Item Value Reference Range Interpretation Comments Urine Urobilinogen (test code = 32721-7) 0.2 0.2-1 [facility]own[facility] Qneworpvv4927-52-01 18:12:00* Test Item Value Reference Range Interpretation Comments Urine Bilirubin (test code = 1978-6) NEGATIVE NEGATIVE [facility]own[facility] [id number] 18:12:00* Test Item Value Reference Range Interpretation Comments Urine Blood (test code = 79580-5) 2+ NEGATIVE [facility] Heightsodium [id number] 18:10:00* Test Item Value Reference Range Interpretation Comments Sodium Level (test code = 2951-2) 140 136-145 [facility]ownPotassium [id number] 18:10:00* Test Item Value Reference Range Interpretation Comments Potassium Level (test code = 2823-3) 3.9 3.5-5.1 [facility]ownChloride [id number] 18:10:00* Test Item Value Reference Range Interpretation Comments Chloride Level (test code = 2075-0) 103 98-107 [facility]ptownCarbon Dioxide [id number] 18:10:00* Test Item Value Reference Range Interpretation Comments Carbon Dioxide Level (test code = 2028-9) 23 22-29 [facility] UptownAnion [id number] 18:10:00* Test Item Value Reference Range Interpretation Comments Anion Gap (test code = 80434-2) 17.9 8-16 H [facility] UptownBlood Urea [id number] 18:10:00* Test Item Value Reference Range Interpretation Comments Blood Urea Nitrogen (test code = 3094-0) 15 7-26 [facility]ptownCreatinine2019-08-05 18:10:00* Test Item Value Reference Range Interpretation Comments Creatinine (test code = 2160-0) 0.89 0.72-1.25 [facility]ownBUN/Creatinine Flbnq1712-20-48 18:10:00* Test Item Value Reference Range Interpretation Comments BUN/Creatinine Ratio (test code = 3097-3) 17 6-25 [facility] UptownEstimat Glomerular Filtration Rate 2018-11-29 18:10:00* Test Item Value Reference Range Interpretation Comments Estimat Glomerular Filtration Rate (test code = 361573466) > 60 >60 Ranges were taken from the National Kidney Disease Education Program and the [facility] Kidney Foundation literature.Reference ranges:60 or greater: Enedvc90-20 ( for 3 consecutive months): Chronic kidney disease 15 or less: Kidney failureBaylor Scott & White Medical Center – UptownGlucose Nhyql0536-78-06 18:10:00* Test Item Value Reference Range Interpretation Comments Glucose Level (test code = MDM6188) 132 74-118 H [facility] UptownCalcium [id number] 18:10:00* Test Item Value Reference Range Interpretation Comments Calcium Level (test code = 97736-1) 9.8 8.4-10.2 [facility] UptownTotal Lwkbznozl0684-93-49 18:10:00* Test Item Value Reference Range Interpretation Comments Total Bilirubin (test code = 1975-2) 0.5 0.2-1.2 [facility] UptownAspartate Amino Transf (AST/SGOT) 2018-11-29 18:10:00* Test Item Value Reference Range Interpretation Comments Aspartate Amino Transf (AST/SGOT) (test code = Aspartate Amino Transf (AST/SGOT)) 21 5-34 [facility] UptownAlanine Aminotransferase (ALT/SGPT) 2018-11-29 18:10:00* Test Item Value Reference Range Interpretation Comments Alanine Aminotransferase (ALT/SGPT) (test code = 1742-6) 33 0-55 [facility] UptownTotal [id number] 18:10:00* Test Item Value Reference Range Interpretation Comments Total Protein (test code = 2885-2) 7.4 6.5-8.1 [facility] UptownAlbumin2019-08-05 18:10:00* Test Item Value Reference Range Interpretation Comments Albumin (test code = 1751-7) 4.1 3.5-5.0 [facility] UptownGlobulin2019-08-05 18:10:00* Test Item Value Reference Range Interpretation Comments Globulin (test code = 31947-5) 3.3 2.3-3.5 [facility] UptownAlbumin/Globulin [id number] 18:10:00 * Test Item Value Reference Range Interpretation Comments Albumin/Globulin Ratio (test code = 1759-0) 1.2 0.8-2.0 [facility] UptownAlkaline Lnvrwcmuhxq2069-04-26 18:10:00* Test Item Value Reference Range Interpretation Comments Alkaline Phosphatase (test code = 6768-6) 83 40-150 [facility] UptownWhite Blood Ninoa5833-42-70 17:58:00* Test Item Value Reference Range Interpretation Comments White Blood Count (test code = 6690-2) 9.10 4.8-10.8 [facility] UptownRed Blood Tpcle7395-77-28 17:58:00* Test Item Value Reference Range Interpretation Comments Red Blood Count (test code = 789-8) 4.89 4.3-5.7 [facility] UptownHemoglobin2019-08-05 17:58:00* Test Item Value Reference Range Interpretation Comments Hemoglobin (test code = 94938-6) 14.7 14.0-18.0 [facility] UptownHematocrit2019-08-05 17:58:00* Test Item Value Reference Range Interpretation Comments Hematocrit (test code = 4544-3) 42.7 38.2-49.6 [facility] UptownMean Corpuscular Fthhii3369-17-51 17:58:00* Test Item Value Reference Range Interpretation Comments Mean Corpuscular Volume (test code = 787-2) 87.3 81-99 [facility] UptownMean Corpuscular Cpgxhdojsh7392-41-27 17:58:00* Test Item Value Reference Range Interpretation Comments Mean Corpuscular Hemoglobin (test code = 785-6) 30.1 28-32 [facility] UptownMean Corpuscular Hemoglobin Concent 2018-11-29 17:58:00* Test Item Value Reference Range Interpretation Comments Mean Corpuscular Hemoglobin Concent (test code = 786-4) 34.4 31-35 [facility] UptownRed Cell Distribution [id number] 17:58:00* Test Item Value Reference Range Interpretation Comments Red Cell Distribution Width (test code = 85668-4) 13.0 11.7 -14.4 [facility] UptownPlatelet Thius4611-90-19 17:58:00* Test Item Value Reference Range Interpretation Comments Platelet Count (test code = 777-3) 129 140-360 L [facility] UptownNeutrophils (%) (Auto)2018-11-29 17:58:00 * Test Item Value Reference Range Interpretation Comments Neutrophils (%) (Auto) (test code = 64974-6) 62.7 38.7-80.0 [facility] UptownLymphocytes (%) (Auto)2018-11-29 17:58:00 * Test Item Value Reference Range Interpretation Comments Lymphocytes (%) (Auto) (test code = 736-9) 28.1 18.0-39.1 [facility] UptownMonocytes (%) (Auto)2018-11-29 17:58:00* Test Item Value Reference Range Interpretation Comments Monocytes (%) (Auto) (test code = 5905-5) 7.5 4.4-11.3 [facility]ptownEosinophils (%) (Auto)2018-11-29 17:58:00 * Test Item Value Reference Range Interpretation Comments Eosinophils (%) (Auto) (test code = 713-8) 1.1 0.0-6.0 [facility] UptownBasophils (%) (Auto)2018-11-29 17:58:00* Test Item Value Reference Range Interpretation Comments Basophils (%) (Auto) (test code = 706-2) 0.2 0.0-1.0 [facility] UptownIM GRANULOCYTES %2018-11-29 17:58:00* Test Item Value Reference Range Interpretation Comments IM GRANULOCYTES % (test code = IM GRANULOCYTES %) 0.4 0.0- 1.0 [facility] UptownNeutrophils # (Auto)2018-11-29 17:58:00* Test Item Value Reference Range Interpretation Comments Neutrophils # (Auto) (test code = 751-8) 5.7 2.1-6.9 [facility] UptownLymphocytes # (Auto)2018-11-29 17:58:00* Test Item Value Reference Range Interpretation Comments Lymphocytes # (Auto) (test code = 07339-2) 2.6 1.0-3.2 [facility] UptownMonocytes # (Auto)2018-11-29 17:58:00* Test Item Value Reference Range Interpretation Comments Monocytes # (Auto) (test code = 742-7) 0.7 0.2-0.8 [facility]ptownEosinophils # (Auto)2018-11-29 17:58:00* Test Item Value Reference Range Interpretation Comments Eosinophils # (Auto) (test code = 711-2) 0.1 0.0-0.4 [facility]ptownBasophils # (Auto)2018-11-29 17:58:00* Test Item Value Reference Range Interpretation Comments Basophils # (Auto) (test code = 704-7) 0.0 0.0-0.1 [facility] UptownAbsolute Immature Granulocyte (auto 2018-11-29 17:58:00* Test Item Value Reference Range Interpretation Comments Absolute Immature Granulocyte (auto (sweetie t code = Absolute Immature Granulocyte (auto) 0.04 0-0.1 [facility]
[2020-02-09] MEDS ORDERED: METHYLPREDNISOLONE SOD SUCC 125 MG/2ML VIAL IV ONE (23:45)
--- NOTE | 2020-02-09 23:51 | Emergency Department Note ---
History of Present Illnes History of Present Illness Chief Complaint: General Medicine Complaints History of Present Illness This is a 49 year old male arrives to the ED with concerns of low platelets. Patient had blood work done . Chief Complaint Comment 49 Y/O MALE PT AAOX3 PRESENTS TO THE ER C/O LOW PLT COUNT; PT STATES HE HAD ROUTINE BLOODWORK YESTERDAY AND RECEIVED CALL FROM PCP AND TOLD TO GO TO THE ER D/T PLT COUNT AT 7; PT DENIES CP OR SOB; DENIES LIGHTHEADED/DIZZINESS OR FATIGUE; NAD NOTED AT THIS TIME; RESP EVEN/UNLABORED; V/S/S; SKIN WARM, DRY AND PALE IN COLOR; 20G IV CATH PLACED IN LT AC; BLOOD AND TYPE AND SCREEN OBTAINED FOR ANALYSIS. Historian: Patient Arrival Mode: Car Onset (how long ago): unknown Severity: unable to specify Onset quality: unable to specify Progression: unable to specify Chronicity: new Context: Reports recent illness Past Medical/Family History Physician Review I have reviewed the patient's past medical and family history. Any updates have been documented here. Past Medical History Recent Fever: No Clinical Suspicion of Infectio: No New/Unexplained Change in Ment: No Past Medical History: Diabetes, Hyperlipedemia Other Medical History: COVID-19 Past Surgical History: Hernia Repair Social History Smoking Cessation: Never Smoker Alcohol Use: None Any Illegal Drug Use: No Other Any Pre-Existing Lines (PICC,: No Review of Systems Review of Systems Constitutional: Reports no symptoms EENTM: Reports no symptoms Cardiovascular: Reports no symptoms Respiratory: Reports no symptoms Gastrointestinal: Reports no symptoms Genitourinary: Reports no symptoms Musculoskeletal: Reports no symptoms Integumentary: Reports no symptoms Neurological: Reports no symptoms Psychological: Reports no symptoms Endocrine: Reports as per HPI Hematological/Lymphatic: Reports no symptoms Physical Exam Related Data Allergies: Coded Allergies: No Known Allergies (Unverified , 02/09/20) Triage Vital Signs Vital Signs Date Time Temp Pulse Resp B/P (MAP) Pulse Ox O2 Delivery O2 Flow Rate FiO2 02/09/20 22:49 98.7 97 20 124/97 97 Room Air Vital signs reviewed: Yes Physical Exam CONSTITUTIONAL Constitutional: Present well-developed, Present well-nourished HENT HENT: Present normocephalic, Present atraumatic, Present oropharynx clear/moist, Present nose normal HENT L/R: Present left ext ear normal, Present right ext ear normal EYES Eyes: Reports PERRL, Reports conjunctivae normal NECK Neck: Present ROM normal PULMONARY Pulmonary: Present effort normal, Present breath sounds normal CARDIOVASCULAR Cardiovascular: Present regular rhythm, Present heart sounds normal, Present capillary refill normal, Present normal rate GASTROINTESTINAL Abdominal: Present soft, Present nontender, Present bowel sounds normal GENITOURINARY Genitourinary: Present exam deferred SKIN Skin: Present warm, Present dry MUSCULOSKELETAL Musculoskeletal: Present ROM normal NEUROLOGICAL Neurological: Present alert, Present oriented x 3, Present no gross motor or sensory deficits PSYCHOLOGICAL Psychological: Present mood/affect normal, Present judgement normal Results Laboratory Result Diagram: 02/09/20 2257 02/09/207 Laboratory Laboratory Tests Test 02/09/20 22:57 White Blood Count 8.54 x10e3/uL (4.8-10.8) Red Blood Count 4.85 x10e6/uL (4.3-5.7) Hemoglobin 13.8 g/dL (14.0-18.0) Hematocrit 41.4 % (38.2-49.6) Mean Corpuscular Volume 85.4 fL (81-99) Mean Corpuscular Hemoglobin 28.5 pg (28-32) Mean Corpuscular Hemoglobin Concent 33.3 g/dL (31-35) Red Cell Distribution Width 13.7 % (11.7-14.4) Platelet Count 8 x10e3/uL (140-360) Neutrophils (%) (Auto) 65.0 % (38.7-80.0) Lymphocytes (%) (Auto) 24.7 % (18.0-39.1) Monocytes (%) (Auto) 8.3 % (4.4-11.3) Eosinophils (%) (Auto) 1.1 % (0.0-6.0) Basophils (%) (Auto) 0.4 % (0.0-1.0) Neutrophils # (Auto) 5.6 (2.1-6.9) Lymphocytes # (Auto) 2.1 (1.0-3.2) Monocytes # (Auto) 0.7 (0.2-0.8) Eosinophils # (Auto) 0.1 (0.0-0.4) Basophils # (Auto) 0.0 (0.0-0.1) Absolute Immature Granulocyte (auto 0.04 x10e3/uL (0-0.1) Sodium Level 143 mmol/L (136-145) Potassium Level 3.9 mmol/L (3.5-5.1) Chloride Level 111 mmol/L (98-107) Carbon Dioxide Level 21 mmol/L (22-29) Anion Gap 14.9 mmol/L (8-16) Blood Urea Nitrogen 14 mg/dL (7-26) Creatinine 0.91 mg/dL (0.72-1.25) Estimat Glomerular Filtration Rate > 60 ML/MIN (60-) BUN/Creatinine Ratio 15 (6-25) Glucose Level 131 mg/dL (74-118) Calcium Level 9.4 mg/dL (8.4-10.2) Total Bilirubin 0.3 mg/dL (0.2-1.2) Aspartate Amino Transf (AST/SGOT) 17 IU/L (5-34) Alanine Aminotransferase (ALT/SGPT) 27 IU/L (0-55) Alkaline Phosphatase 56 IU/L (40-150) Total Protein 7.2 g/dL (6.5-8.1) Albumin 4.4 g/dL (3.5-5.0) Globulin 2.8 g/dL (2.3-3.5) Albumin/Globulin Ratio 1.6 (0.8-2.0) Lab results reviewed: Yes Imaging Imaging results reviewed: Yes Critical Care Time Total Critical Care Time (min): 45 Critical care time exclusive o: separately billable procedures Critcal care necessary due to: circulatory failure, endocrine crisis Assessment & Plan Medical Decision Making MDM 49-year-old male arrives to the ED with low platelets, noted to be markedly from cytopenia. 16 somewhat but it's ordered and patient admitted to the hospital for transfusion monitoring. Heme/Onc consult to be done by primary admitting team. Assessment & Plan Final Impression: (1) Thrombocytopenia Depart Disposition: HOME, SELF-CARE Last Vital Signs Date Time Temp Pulse Resp B/P (MAP) Pulse Ox O2 Delivery O2 Flow Rate FiO2 02/09/20 22:49 98.7 97 20 124/97 97 Room Air Medications in the ED Methylprednisolone Sodium Succinate 125 mg ONCE ONCE IV ; Start 02/09/20 at 23:45; Stop 02/09/20 at 23:46; Status DC COOPER ROMERO, DO Feb 09, 2020 23:51
[2020-02-09 23:58] LABS: CREATINE KINASE 116 IU/L (30-200)
--- OUTSIDE RECORDS SUMMARY | 2020-02-10 00:55 | XMS REPORT | Continuity of Care Document ---
Author Author [facility] Organization [facility] Address [address] [place] [address] Phone Unavailable Care Team Providers Care Teacher Lip Reading Name Role Phone NONSTAFF PCP Unavailable Deysi SHEARER Attphyajit Unavailable Payers Payer Name Policy Type Policy Number Effective Date Expiration Date Ajit Barbour o [id number] 2017 00:00:00 [facility] Problems This patient has no known problems. Allergies, Adverse Reactions, Alerts Allergy Name Allergy Type Status Severity Reaction(s) Onset Date Inacti ve Date Treating Clinician Comments Source No Known Allergies DA Active U 2019-11-08 00:00:00 [facility] No Known Allergies DA Active U 2016-10-02 00:00:00 [facility] Medications This patient has no known medications. Procedures Procedure Date / Time Performed Performing Clinician Sourc e Computed tomography of abdomen and pelvis with contrast 2018 00:00:00 BAUTISTA MAN [facility] Encounters Start Date/Time End Date/Time Encounter Type Admission Type Attendi [facility] Care Department Encounter ID Source 2018-11-29 16:32:00 2018-11-29 20:40:00 Departed Emergency Room 1 ZEHRA SHEARER [facility] [id number] [facility] Results Test Description Test Time Test Comments Results Result Comments Source GLUBED 2019-11-11 15:52:00 Test Item GLUBED (test code = GLUBED) 229 mg/dL 70-110 H [id number] 11:05:00* Test Item Value Reference Range Interpretation Comments GLUBED (test code = GLUBED) 141 mg/dL 70-110 H [id number] 07:07:00* Test Item Value Reference Range Interpretation Comments GLUBED (test code = GLUBED) 116 mg/dL 70-110 H [id number] 21:08:00* Test Item Value Reference Range Interpretation Comments GLUBED (test code = GLUBED) 239 mg/dL 70-110 H [id number] 15:36:00* Test Item Value Reference Range Interpretation Comments GLUBED (test code = GLUBED) 306 mg/dL 70-110 H [id number] 11:38:00* Test Item Value Reference Range Interpretation Comments GLUBED (test code = GLUBED) 142 mg/dL 70-110 H [id number] 07:48:00* Test Item Value Reference Range Interpretation Comments GLUBED (test code = GLUBED) 101 mg/dL 70-110 N BASIC METABOLIC [id number] 05:36:00* Test Item Value Reference Range Interpretation [...] code = CA) 8.4 mg/dl 8.0-10.5 N [id number] 20:35:00* Test Item Value Reference Range Interpretation Comments GLUBED (test code = GLUBED) 214 mg/dL 70-110 H [id number] 15:22:00* Test Item Value Reference Range Interpretation Comments GLUBED (test code = GLUBED) 237 mg/dL 70-110 H [id number] 11:31:00* Test Item Value Reference Range Interpretation Comments GLUBED (test code = GLUBED) 164 mg/dL 70-110 H [id number] 07:37:00* Test Item Value Reference Range Interpretation Comments GLUBED (test code = GLUBED) 116 mg/dL 70-110 H [id number] 20:30:00* Test Item Value Reference Range Interpretation Comments GLUBED (test code = GLUBED) 215 mg/dL 70-110 H [id number] 16:36:00* Test Item Value Reference Range Interpretation Comments GLUBED (test code = GLUBED) 269 mg/dL 70-110 H LACTIC DEHYDROGENASE(LDH)2019-11-08 14:31:00* Test Item Value Reference Range Interpretation Comments LACTIC DEHYDROGENASE(LDH) (test code = LDH) 476 Units/L 81-234 H [id number] 14:31:00* Test Item Value Reference Range Interpretation Comments FERRITIN (test code = STEFANO) 1760 ng/mL 23.9-336.2 H C REACTIVE [id number] 13:56:00* Test Item Value Reference Range Interpretation Comments C REACTIVE PROTEIN (test code = CRP) 4.7 mg/dL 0.0-0.9 H PLEASE MAKE NOTE OF NEW CRP REFERENCE RANGE D-DIMER/[id number] 12:42:00* Test Item Value Reference Range Interpretation Comments D-DIMER/FSP (test code = DDIMER) 558 ng/mLFEU 0-500 HH Thrombosis and/or Pulmonary Embolism and the clinicalcut-off value for exclusion (500 ng/mL FEU) of theseconditions is validated by the wood inspector of the method. A negative D- Dimer result when combined with a clinicalassessment of low pretest probability has been shown to havea high negative predictive value of DVT or PE. D-Dimer values >500 ng/mL FEU are not diagnostic for DVT,PE, or DIC without other confirmatory tests and appropriateclinical evaluations. - XR CHEST 1 [id number] 12:24:00 FAX: Shital Hutchinson MD [phone] [place]: EM St: ADM FAX: Cecilia Turk [phone] Name: ADDISON BALTAZAR [facility] : 1970 Age/S: 49/M [address] [facility] Unit #: [id number] Loc: [address] [place] [address] Phys: [place] [address] Acct: [id number] Dis Date: Status: ADM IN PHONE #: [phone] Exam Date: 11/08/2019 1210 FAX #: [phone] Reason: covid penumonia EXAMS: CPT CODE: [id number] XR CHEST 1 V 08035 EXAMINATION: - XR CHEST 1 V. LOCATION: [...] MD Technologist: SOHA DIAZ Trnscrd Date/Time/By: 11/08/2019 (3464) : By: [email or web address] PAGE 1 Signed Report FAX: Shital Hutchinson MD [phone] [place]: St: ADM FAX: Cecilia Sr [phone] Name: ADDISON BALTAZAR [facility] : 1970 Age/S: 49/M [address] [facility] Unit #: [id number] Loc: [address] [place] [address] Phys: [place] [address] Acct: [id number] Dis Date: Status: ADM IN PHONE #: [phone] Exam Date: 11/08/2019 FAX #: [phone] Reason: covid neyonia EXAMS: CPT CODE: [id number] XR CHEST 1 V 04154 <Continued> Orig Print D/T: S: 11/08/2019 (7623) PAGE 2 Signed Report [id number] 11:57:00* Test Item Value Reference Range Interpretation Comments GLUBED (test code = GLUBED) 127 mg/dL 70-110 H PROTHROMBIN [id number] 10:00:00* Test Item Value Reference Range Interpretation [...] on anticoagulants? YIf yes, list anticoagulants: ENOXAPRIN LSOSM20Aetbmuiy5101-34-08 09:56:00* Test Item Value Reference Range Interpretation Comments SALHR57Wxrsmdfx (test code = DMUTQ79Ejdledph) POSITIVE Negative A Note: this entry is for TRACKING purposes only and the testwas done outside [facility], the performing entity isfound in specimen comments.Note: this entry is for TRACKING purposes only and the testwas done outside [facility], the performing entity isfound in specimen comments. The test was performed at: [facility]: 11/04/19[facility]: [id number] patient's current lab results are: Positive [id number] 08:18:00* Test Item Value Reference Range Interpretation Comments GLUBED (test code = GLUBED) 112 mg/dL 70-110 H COMPREHENSIVE METABOLIC [id number] 08:15:00* Test Item Value Reference Range Interpretation [...] = ALKP) 47 Units/L 50.0-136 .0 L [id number] 07:46:00* Test Item Value Reference Range Interpretation Comments HEMATOCRIT (test code = HCT) 42.7 % 36.0-48.0 N [id number] 20:08:00* Test Item Value Reference Range Interpretation Comments GLUBED (test code = GLUBED) 218 mg/dL 74-106 H Performed by certified universal winding machine operator at [facility] [id number] 16:21:00* Test Item Value Reference Range Interpretation Comments GLUBED (test code = GLUBED) 220 mg/dL 74-106 H Performed by certified universal winding machine operator at [facility] [id number] 12:08:00* Test Item Value Reference Range Interpretation Comments GLUBED (test code = GLUBED) 170 mg/dL 74-106 H Performed by certified universal winding machine operator at [facility] COMPREHENSIVE METABOLIC [id number] 11:50:00* Test Item Value Reference Range Interpretation [...] due to change in reagent. COMPREHENSIVE METABOLIC [id number] 11:38:00* Test Item Value Reference Range Interpretation [...] TOTAL (test code = ALKP) IUnit/L 45-117 [id number] 08:57:00* Test Item Value Reference Range Interpretation Comments GLUBED (test code = GLUBED) 157 mg/dL 74-106 H Performed by certified universal winding machine operator at [facility] [id number] 04:46:00* Test Item Value Reference Range Interpretation Comments GLUBED (test code = GLUBED) 202 mg/dL 74-106 H Performed by certified universal winding machine operator at [facility] [id number] 20:06:00* Test Item Value Reference Range Interpretation Comments GLUBED (test code = GLUBED) 292 mg/dL 74-106 H Performed by certified universal winding machine operator at [facility] [id number] 16:35:00* Test Item Value Reference Range Interpretation Comments GLUBED (test code = GLUBED) 195 mg/dL 74-106 H Performed by certified universal winding machine operator at [facility] [id number] 13:20:00* Test Item Value Reference Range Interpretation Comments GLUBED (test code = GLUBED) 174 mg/dL 74-106 H Performed by certified universal winding machine operator at [facility] [id number] 10:57:00* Test Item Value Reference Range Interpretation Comments GLUBED (test code = GLUBED) 190 mg/dL 74-106 H Performed by certified universal winding machine operator at [facility] COMPREHENSIVE METABOLIC [id number] 07:25:00* Test Item Value Reference Range Interpretation [...] due to change in reagent. COMPREHENSIVE METABOLIC [id number] 07:08:00* Test Item Value Reference Range Interpretation [...] TOTAL (test code = ALKP) IUnit/L 45-117 [id number] 20:21:00* Test Item Value Reference Range Interpretation Comments GLUBED (test code = GLUBED) 155 mg/dL 74-106 H Performed by certified universal winding machine operator at [facility] [id number] 18:40:00* Test Item Value Reference Range Interpretation Comments GLUBED (test code = GLUBED) 127 mg/dL 74-106 H Performed by certified universal winding machine operator at [facility] COMPREHENSIVE METABOLIC [id number] 13:14:00* Test Item Value Reference Range Interpretation [...] reference range due to change in reagent. [id number] 13:13:00* Test Item Value Reference Range Interpretation Comments GLUBED (test code = GLUBED) 134 mg/dL 74-106 H Performed by certified universal winding machine operator at [facility] [id number] 05:33:00* Test Item Value Reference Range Interpretation Comments GLYCOSYLATED HEMOGLOBIN (HA1C) (test code = GLYHGB) 6.6 % HbA1 SUGGESTED DIAGNOSIS: HbA1C (%) Diabetic >6.4Prediabetes 5.7 - 6.4Normal <5.7 ESTIMATED AVERAGE GLUCOSE (test code = EAG) 143 MG/DL CBC W/O [id number] 05:07:00* Test Item Value Reference Range Interpretation [...] = MPV) 9.7 fL 6.7-11.0 N URINALYSIS [id number] 21:52:00* Test Item Value Reference Range Interpretation [...] MUCU) FEW #/LPF FEW Urine Source? Clean HhnkuQYTLPM2770-64-27 21:07:00* Test Item Value Reference Range Interpretation Comments GLUBED (test code = GLUBED) 114 mg/dL 74-106 H Performed by certified universal winding machine operator at [facility] COVID 19 INHOUSE [id number] 15:21:00* Test Item Value Reference Range Interpretation Comments COVID 19 INHOUSE AG (test code = YEDEY94DOWN) POSITIVE Is patient requiring admission or transfer? YIndication for rapid COVID-19 testi ng: Mod Clinical SuspicionHEPATIC FUNCTION [id number] 13:27:00* Test Item Value Reference Range Interpretation [...] due to change in reagent. BASIC METABOLIC [id number] 13:23:00* Test Item Value Reference Range Interpretation [...] code = CA) 8.8 mg/dL 8.5-10.1 N [id number] 13:23:00* Test Item Value Reference Range Interpretation Comments TROPONIN-I (test code = TROPI) <0.015 ng/mL 0-0.045 N LACTIC [id number] 13:23:00* Test Item Value Reference Range Interpretation Comments LACTIC ACID (test code = LACT) 1.1 mmol/L 0.4-1.9 N BASIC METABOLIC [id number] 13:15:00* Test Item Value Reference Range Interpretation [...] CALCIUM (test code = CA) mg/dL 8.5-10.1 [id number] 13:15:00* Test Item Value Reference Range Interpretation Comments TROPONIN-I (test code = TROPI) ng/mL 0-0.045 - XR CHEST 1 [id number] 13:12:00 FAX: Sharmaine Phipps DO [place]: [address]: PRE Name: Karan ADDISON SALEEM [facility] : [birth year] Age/S: 49/M [address] [facility] Unit #: [id number] Loc: [place] [address] Phys: Sharmaine Phipps DO Acct: [id number] Dis Date: Status: PRE ER PHONE #: [phone] Exam Date: 11/04/2019 1310 FAX #: [phone] Reason: CHEST PAIN EXAMS: CPT CODE: [id number] XR CHEST 1 V 98548 HISTORY: Chest pain. COMPARISON: None available. Location: [facility]. Patchy b ilateral groundglass infiltrates. Dependent changes. No effusion or conges tion. Cardiomegaly. IMPRESSION: Patchy groundg lass infiltrates. Electronically Signed by Hawa Sandoval on 10/25 at 1312 Reported and signed by: Will Retana CC: Sharmaine Phipps DO Technologist: ERWIN WALKER) Hany nscrd Date/Time/By: 11/04/2019 (6316) : By: [email or web address] Orig Print D/T: S: 11/04/2019 (5046) PAGE 1 Nettie d Report CBC W/O [id number] 12:59:00* Test Item Value Reference Range Interpretation [...] MPV) 9.8 fL 6.7-11.[address] ABDOMEN/PELVIS [id number] 20:07:00 [facility] [address] [address] Patient Name: ADDISON BALTAZAR JR MR #: [id number] : 1970 Age/Sex: 48/M Req #: [id number] Adm Physician: Ordered by: BUATISTA MAN NP Report #: [id number] Location: ER Room/Bed: Procedure: [id number] CT/C T ABDOMEN/PELVIS W Exam Date: 11/29/18 [...] 11/29/2018 8:13 PM Dictate d By: RL HUNG MD 12 Transcribed By: JOB on 11/29/182012 COPY TO: BAUTISTA MAN NP Urine [id number] 18:31:00* Test Item Value Reference Range Interpretation Comments Urine WBC (test code = 5821-4) NONE 0-5 [facility] [id number] 18:31:00* Test Item Value Reference Range Interpretation Comments Urine RBC (test code = 18335-2) 0-5 0-5 [facility] Center[facility] Lhpyalcd5266-72-12 18:31:00* Test Item Value Reference Range Interpretation Comments Urine Bacteria (test code = 79832-6) FEW NONE [facility] CenterU[facility] Epithelial Papzp8535-47-58 18:31:00 * Test Item Value Reference Range Interpretation Comments Urine Epithelial Cells (test code = 79219-8) FEW NONE [facility] Center[facility] Hyaline [id number] 18:31:00* Test Item Value Reference Range Interpretation Comments Urine Hyaline Casts (test code = 30983-1) 2-5 0-1 H [facility] CenterAmylase Wiksm7870-41-99 18:19:00* Test Item Value Reference Range Interpretation Comments Amylase Level (test code = 1798-8) 34 25-125 [facility] CenterLipase2019-08-05 18:19:00* Test Item Value Reference Range Interpretation Comments Lipase (test code = 3040-3) 15 8-78 [facility] CenterU[facility] [id number] 18:12:00* Test Item Value Reference Range Interpretation Comments Urine Color (test code = 5778-6) YELLOW YELLOW [facility] CenterU[facility] Wetjrbr8187-88-33 18:12:00* Test Item Value Reference Range Interpretation Comments Urine Clarity (test code = 40173-9) SL CLOUDY CLEAR H [facility] CenterUrine Specific Ufhvxyb0745-80-79 18:12:00 * Test Item Value Reference Range Interpretation Comments Urine Specific [place] (test code = 5811-5) 1.025 1.010-1.02 5 [facility] CenterU[facility] [id number] 18:12:00* Test Item Value Reference Range Interpretation Comments Urine pH (test code = 63919-9) 6 5-7 [facility] Leukocyte Fpnndwpz9278-98-53 18:12:00* Test Item Value Reference Range Interpretation Comments Urine Leukocyte Esterase (test code = 5799-2) NEGATIVE NEGATIVE [facility] Center[facility] Njulijz9801-26-56 18:12:00* Test Item Value Reference Range Interpretation Comments Urine Nitrite (test code = 45489-1) NEGATIVE NEGATIVE [facility] CenterU[facility] Lvmmsnb1893-80-50 18:12:00* Test Item Value Reference Range Interpretation Comments Urine Protein (test code = 5804-0) NEGATIVE NEGATIVE [facility] Glucose (UA)2018-11-29 18:12:00* Test Item Value Reference Range Interpretation Comments Urine Glucose (UA) (test code = 2349-9) 3+ NEGATIVE H [facility] CenterUrine Mekkwge4777-94-09 18:12:00* Test Item Value Reference Range Interpretation Comments Urine Ketones (test code = 92649-2) TRACE NEGATIVE H [facility] CenterUrine Qnbbchamijmt7757-09-57 18:12:00* Test Item Value Reference Range Interpretation Comments Urine Urobilinogen (test code = 99804-0) 0.2 0.2-1 [facility] CenterU[facility] Mibcpwpnn2154-42-00 18:12:00* Test Item Value Reference Range Interpretation Comments Urine Bilirubin (test code = 1978-6) NEGATIVE NEGATIVE [facility] CenterU[facility] Ppred8057-46-03 18:12:00* Test Item Value Reference Range Interpretation Comments Urine Blood (test code = 44766-5) 2+ NEGATIVE H [facility] Xkhco9334-58-12 18:10:00* Test Item Value Reference Range Interpretation Comments Sodium Level (test code = 2951-2) 140 136-145 [facility] CenterPotassium Iixlr1289-04-96 18:10:00* Test Item Value Reference Range Interpretation Comments Potassium Level (test code = 2823-3) 3.9 3.5-5.1 [facility] CenterChloride Qsleu9300-74-68 18:10:00* Test Item Value Reference Range Interpretation Comments Chloride Level (test code = 2075-0) 103 98-107 [facility] CenterCarbon Dioxide Jxchh4741-76-65 18:10:00* Test Item Value Reference Range Interpretation Comments Carbon Dioxide Level (test code = 2028-9) 23 22-29 [facility] CenterAnion Qkw7224-36-68 18:10:00* Test Item Value Reference Range Interpretation Comments Anion Gap (test code = 77468-1) 17.9 8-16 H [facility] CenterBlood Urea Kzljahrn4937-17-71 18:10:00* Test Item Value Reference Range Interpretation Comments Blood Urea Nitrogen (test code = 3094-0) 15 7-26 [facility] CenterCreatinine2019-08-05 18:10:00* Test Item Value Reference Range Interpretation Comments Creatinine (test code = 2160-0) 0.89 0.72-1.25 [facility] CenterBUN/Creatinine Lhjga4559-11-26 18:10:00* Test Item Value Reference Range Interpretation Comments BUN/Creatinine Ratio (test code = 3097-3) 17 6-25 [facility] CenterEstimat Glomerular Filtration Rate 2018-11-29 18:10:00* Test Item Value Reference Range Interpretation Comments Estimat Glomerular Filtration Rate (test code = 631889774) > 60 >60 Ranges were taken from the National Kidney Disease Education Program and the [employer] Kidney Foundation literature.Reference ranges:60 or greater: Kgcvup25-79 ( for 3 consecutive months): Chronic kidney disease 15 or less: Kidney failureWilson N. Jones Regional Medical CenterGlucose Fvqbu9693-03-38 18:10:00* Test Item Value Reference Range Interpretation Comments Glucose Level (test code = WHC1934) 132 74-118 H [facility] CenterCalcium Cxyny5879-74-46 18:10:00* Test Item Value Reference Range Interpretation Comments Calcium Level (test code = 68384-7) 9.8 8.4-10.2 [facility] CenterTotal Dlglzquee4136-94-93 18:10:00* Test Item Value Reference Range Interpretation Comments Total Bilirubin (test code = 1975-2) 0.5 0.2-1.2 [facility] CenterAspartate Amino Transf (AST/SGOT) 2018-11-29 18:10:00* Test Item Value Reference Range Interpretation Comments Aspartate Amino Transf (AST/SGOT) (test code = Aspartate Amino Transf (AST/SGOT)) 21 5-34 [facility] CenterAlanine Aminotransferase (ALT/SGPT) 2018-11-29 18:10:00* Test Item Value Reference Range Interpretation Comments Alanine Aminotransferase (ALT/SGPT) (test code = 1742-6) 33 0-55 [facility] CenterTotal Pragryr2836-89-99 18:10:00* Test Item Value Reference Range Interpretation Comments Total Protein (test code = 2885-2) 7.4 6.5-8.1 [facility] CenterAlbumin2019-08-05 18:10:00* Test Item Value Reference Range Interpretation Comments Albumin (test code = 1751-7) 4.1 3.5-5.0 [facility] CenterGlobulin2019-08-05 18:10:00* Test Item Value Reference Range Interpretation Comments Globulin (test code = 87024-7) 3.3 2.3-3.5 [facility] CenterAlbumin/Globulin Bbtdu2072-11-60 18:10:00 * Test Item Value Reference Range Interpretation Comments Albumin/Globulin Ratio (test code = 1759-0) 1.2 0.8-2.0 [facility] CenterAlkaline Czftgpprpqt7191-14-13 18:10:00* Test Item Value Reference Range Interpretation Comments Alkaline Phosphatase (test code = 6768-6) 83 40-150 [facility] CenterWhite Blood Weskx4100-84-47 17:58:00* Test Item Value Reference Range Interpretation Comments White Blood Count (test code = 6690-2) 9.10 4.8-10.8 [facility] CenterRed Blood Inmfz5322-10-33 17:58:00* Test Item Value Reference Range Interpretation Comments Red Blood Count (test code = 789-8) 4.89 4.3-5.7 [facility] CenterHemoglobin2019-08-05 17:58:00* Test Item Value Reference Range Interpretation Comments Hemoglobin (test code = 56443-6) 14.7 14.0-18.0 [facility] CenterHematocrit2019-08-05 17:58:00* Test Item Value Reference Range Interpretation Comments Hematocrit (test code = 4544-3) 42.7 38.2-49.6 [facility] CenterMean Corpuscular Ezryjl6180-54-71 17:58:00* Test Item Value Reference Range Interpretation Comments Mean Corpuscular Volume (test code = 787-2) 87.3 81-99 [facility] CenterMean Corpuscular Xpaxroxqil4933-28-29 17:58:00* Test Item Value Reference Range Interpretation Comments Mean Corpuscular Hemoglobin (test code = 785-6) 30.1 28-32 [facility] CenterMean Corpuscular Hemoglobin Concent 2018-11-29 17:58:00* Test Item Value Reference Range Interpretation Comments Mean Corpuscular Hemoglobin Concent (test code = 786-4) 34.4 31-35 [facility] CenterRed Cell Distribution Bwrmw8165-89-93 17:58:00* Test Item Value Reference Range Interpretation Comments Red Cell Distribution Width (test code = 79757-0) 13.0 11.7 -14.4 [facility] CenterPlatelet Roqqr6771-29-38 17:58:00* Test Item Value Reference Range Interpretation Comments Platelet Count (test code = 777-3) 129 140-360 L [facility] CenterNeutrophils (%) (Auto)2018-11-29 17:58:00 * Test Item Value Reference Range Interpretation Comments Neutrophils (%) (Auto) (test code = 02145-7) 62.7 38.7-80.0 [facility] CenterLymphocytes (%) (Auto)2018-11-29 17:58:00 * Test Item Value Reference Range Interpretation Comments Lymphocytes (%) (Auto) (test code = 736-9) 28.1 18.0-39.1 [facility] CenterMonocytes (%) (Auto)2018-11-29 17:58:00* Test Item Value Reference Range Interpretation Comments Monocytes (%) (Auto) (test code = 5905-5) 7.5 4.4-11.3 [facility] CenterEosinophils (%) (Auto)2018-11-29 17:58:00 * Test Item Value Reference Range Interpretation Comments Eosinophils (%) (Auto) (test code = 713-8) 1.1 0.0-6.0 [facility] CenterBasophils (%) (Auto)2018-11-29 17:58:00* Test Item Value Reference Range Interpretation Comments Basophils (%) (Auto) (test code = 706-2) 0.2 0.0-1.0 [facility] CenterIM GRANULOCYTES %2018-11-29 17:58:00* Test Item Value Reference Range Interpretation Comments IM GRANULOCYTES % (test code = IM GRANULOCYTES %) 0.4 0.0- 1.0 [facility] CenterNeutrophils # (Auto)2018-11-29 17:58:00* Test Item Value Reference Range Interpretation Comments Neutrophils # (Auto) (test code = 751-8) 5.7 2.1-6.9 [facility] CenterLymphocytes # (Auto)2018-11-29 17:58:00* Test Item Value Reference Range Interpretation Comments Lymphocytes # (Auto) (test code = 69540-9) 2.6 1.0-3.2 [facility] CenterMonocytes # (Auto)2018-11-29 17:58:00* Test Item Value Reference Range Interpretation Comments Monocytes # (Auto) (test code = 742-7) 0.7 0.2-0.8 [facility] # (Auto)2018-11-29 17:58:00* Test Item Value Reference Range Interpretation Comments Eosinophils # (Auto) (test code = 711-2) 0.1 0.0-0.4 [facility] (Auto)2018-11-29 17:58:00* Test Item Value Reference Range Interpretation Comments Basophils # (Auto) (test code = 704-7) 0.0 0.0-0.1 [facility] CenterAbsolute Immature Granulocyte (auto 2018-11-29 17:58:00* Test Item Value Reference Range Interpretation Comments Absolute Immature Granulocyte (auto (sweetie t code = Absolute Immature Granulocyte (auto) 0.04 0-0.1 [facility]
--- NOTE | 2020-02-10 01:48 | NUR ---
PATIENT ARRIVED VIA WHEELCHAIR TO THE UNIT FROM ER. RECEIVED REPORT FROM AMY PERDOMO NURSE. PATIENT IN NO PAIN OR DISTRESS. CALL LIGHT WITHIN REACH. PATIENT IS A&OX3 AND AMBULATES
[2020-02-10 02:00] VITALS: BP 111/68
[2020-02-10] MEDS ORDERED: SODIUM CHLORIDE 0.9% 250ML 250 ML ONE (02:51)
[2020-02-10] MEDS ORDERED: ROSUVASTATIN CA20 MG (03:07)
[2020-02-10] MEDS ORDERED: LEVOCETIRIZINE D5 MG (03:07)
[2020-02-10] MEDS ORDERED: FENOFIBRATE134 MG (03:07)
[2020-02-10] MEDS ORDERED: VITAMIN B-121000 MCG (03:07)
[2020-02-10] MEDS ORDERED: FARXIGA10 MG (03:07)
[2020-02-10] MEDS ORDERED: METFORMIN HCL1000 MG (03:07)
[2020-02-10] MEDS ORDERED: TRULICITY0.75 MG/0. (03:07)
--- NOTE | 2020-02-10 04:03 | NUR ---
PATIENT STARTED TO COMPLAIN OF COUGH AND BEING ITCHY BEFORE THE SECOND UNIT WAS SUPPOSE TO START. HE FELT OKAY RIGHT AFTER THE FIRST UNIT WAS GIVEN. CALLED DR. CHLÉO FRAGA AND THAO VASQUEZ ANSWERED AND WAS TOLD WHAT WAS GOING ON. SHE ORDERED BENADRYL 12.5 IV Q6 PRN. Addendum: 02/10/20 at 0439 by Mira Pate RN VITAL SIGNS ARE STABLE AND NO HIVES PRESENT
--- NOTE | 2020-02-10 04:10 | NUR ---
PATIENT COMPLAINING THAT HE HAS A DRY COUGH, ITCHY THROAT, AND ITCHING ON HIS CHEST. HE WAS GIVEN BENADRYL IV
[2020-02-10] MEDS ORDERED: DIPHENHYDRAMINE HCL INJ 50 MG/ML VIAL IV PRN (04:15)
--- NOTE | 2020-02-10 04:37 | NUR ---
CHECKED ON THE PATIENT AND HE SAID HE IS OFF AND ON ITCHY, COUGH, AND RUNNY NOSE. NO HIVES NOTED ON SKIN WHEN EXAMINED. VITAL SIGNS ARE STABLE
[2020-02-10 05:18] LABS: BASOPHILS % 0.1 % (0.0-1.0); EOSINOPHILS % 0.3 % (0.0-6.0); HEMATOCRIT 41.3 % (38.2-49.6); LYMPHOCYTES # (AUTO) 1.1 (1.0-3.2); LYMPHOCYTES % 14.3 % (18.0-39.1); MEAN CORPUSCULAR HEMOGLOBIN 29.4 pg (28-32); MEAN CORPUSCULAR HGB CONC 33.9 g/dL (31-35); MEAN CORPUSCULAR VOLUME 86.8 fL (81-99); MONOCYTES # (AUTO) 0.2 (0.2-0.8); MONOCYTES % 2.6 % (4.4-11.3); NEUTROPHILS # (AUTO) 6.3 (2.1-6.9); NEUTROPHILS % 82.3 % (38.7-80.0); RED BLOOD COUNT 4.76 x10e6/uL (4.3-5.7); RED CELL DISTRIBUTION WIDTH 13.9 % (11.7-14.4)
--- NOTE | 2020-02-10 05:20 | NUR ---
CALLED DR. LUEVANO OFFICE AND TALKED TO THAO VASQUEZ ABOUT THE PATIENT SAYING HIS TONGUE FEELS WEIRD STILL. SHE SAID TO HOLD OFF ON GIVING THE PLATELETS AND CONTINUE WITH THE BENADRYL.
[2020-02-10 05:27] LABS: PLATELET COUNT 18 x10e3/uL (140-360)
[2020-02-10 05:38] LABS: ALANINE AMINOTRANSFERASE 28 IU/L (0-55); ALBUMIN/GLOBULIN RATIO 1.4 (0.8-2.0); ALKALINE PHOSPHATASE 52 IU/L (40-150); ANION GAP 15.1 mmol/L (8-16); BLOOD UREA NITROGEN 13 mg/dL (7-26); BUN/CREATININE RATIO 13 (6-25); CALCIUM 9.3 mg/dL (8.4-10.2); CARBON DIOXIDE 22 mmol/L (22-29); CHLORIDE 107 mmol/L (98-107); CREATININE, SERUM 0.98 mg/dL (0.72-1.25); EST GLOMERULAR FILTRATION RATE > 60 ML/MIN (60-); GLUCOSE 249 mg/dL (74-118); POTASSIUM 4.1 mmol/L (3.5-5.1); SODIUM 140 mmol/L (136-145)
--- NOTE | 2020-02-10 07:07 | NUR ---
GAVE BEDSIDE SHIFT REPORT TO ONCOMING NURSE. CALL LIGHT WITHIN REACH. PATIENT IS A&OX3 AND AMBULATES. HOURLY ROUNDING PERFORMED
[2020-02-10 07:34] LABS: CREATINE KINASE 98 IU/L (30-200)
[2020-02-10 08:00] VITALS: BP 119/69
[2020-02-10 08:26] LABS: RBC MORPHOLOGY COMMENT NORMAL
[2020-02-10 08:27] LABS: PLATELET ESTIMATE MARKEDLY DECREASED; PLATELET MORPHOLOGY COMMENT NORMAL
[2020-02-10 08:33] VITALS: BP 119/69
[2020-02-10 12:01] VITALS: BP 121/67
[2020-02-10 15:16] LABS: CREATINE KINASE 74 IU/L (30-200)
[2020-02-10 16:00] VITALS: BP 109/68
[2020-02-10] MEDS ORDERED: DEXTROSE 50% SYRINGE 50 ML IV PRN (17:45)
--- NOTE | 2020-02-10 17:54 | NUR ---
Routine consult called to Dr. Smith at 1742.
--- NOTE | 2020-02-10 18:50 | NUR ---
RECEIVED BEDSIDE SHIFT REPORT FROM PREVIOUS NURSE. CALL LIGHT WITHIN REACH. PATIENT IN BED. PATIENT IS A&OX3 AND AMBULATES
[2020-02-10 20:00] VITALS: BP 114/69
--- NOTE | 2020-02-10 20:26 | NUR ---
DR. HAN CALLED BACK AND HE ORDERED 20 MG OF DEXAMETHASONE IV DAILY FOR 4 DAYS, ORDERED CBC FOR THE MORNING AND TO CALL HIM WITH THE RESULTS.
[2020-02-10] MEDS: INSULIN LISPRO 100 UNIT/1 ML 3ML VIAL SQ SCH (21:13)
[2020-02-10] MEDS ORDERED: DEXAMETHASONE SOD PHOS 10 MG/1 ML VIAL IV ONE (21:30)
[2020-02-11] VITALS (8 sets, daily range): BP systolic 106–125; BP diastolic 54–82
[2020-02-11 05:07] LABS: BASOPHILS % 0.1 % (0.0-1.0); HEMATOCRIT 40.5 % (38.2-49.6); HEMOGLOBIN 13.8 g/dL (14.0-18.0); LYMPHOCYTES # (AUTO) 1.1 (1.0-3.2); LYMPHOCYTES % 12.5 % (18.0-39.1); MEAN CORPUSCULAR HEMOGLOBIN 28.9 pg (28-32); MEAN CORPUSCULAR HGB CONC 34.1 g/dL (31-35); MEAN CORPUSCULAR VOLUME 84.7 fL (81-99); MONOCYTES # (AUTO) 0.2 (0.2-0.8); MONOCYTES % 1.9 % (4.4-11.3); NEUTROPHILS # (AUTO) 7.6 (2.1-6.9); NEUTROPHILS % 84.9 % (38.7-80.0); RED BLOOD COUNT 4.78 x10e6/uL (4.3-5.7); RED CELL DISTRIBUTION WIDTH 13.6 % (11.7-14.4)
[2020-02-11 05:10] LABS: PLATELET COUNT 29 x10e3/uL (140-360)
[2020-02-11 05:25] LABS: BLOOD UREA NITROGEN 13 mg/dL (7-26); BUN/CREATININE RATIO 14 (6-25); CALCIUM 9.4 mg/dL (8.4-10.2); CARBON DIOXIDE 23 mmol/L (22-29); CHLORIDE 103 mmol/L (98-107); CREATININE, SERUM 0.96 mg/dL (0.72-1.25); EST GLOMERULAR FILTRATION RATE > 60 ML/MIN (60-); GLUCOSE 265 mg/dL (74-118); SODIUM 139 mmol/L (136-145)
--- NOTE | 2020-02-11 05:29 | NUR ---
CALLED DR HAN OFFICE AND WAITING FOR A CALL BACK. CALLED DR. HAN TO TELL HIM THE PATIENT'S LAB RESULTS
--- NOTE | 2020-02-11 06:29 | NUR ---
CALLED DR. HAN OFFICE AGAIN AND THEY SAID THEY WILL PAGE HIM BECAUSE HIS PHONE IS OFF
--- NOTE | 2020-02-11 07:14 | NUR ---
DR. HAN CALLED BACK AND I TOLD HIM THE PLATELETS WENT UP TO 29. HE SAID TO STOP THE DECADRON AND START PREDNISONE 40 MG DAILY AND FIRST DOSE THIS MORNING AND DO A CBC AT 1400.
--- NOTE | 2020-02-11 07:15 | NUR ---
received pt from previous shift. pt a & o x4, no c/o pain, resting in bed
--- NOTE | 2020-02-11 07:30 | NUR ---
GAVE BEDSIDE SHIFT REPORT TO ONCOMING NURSE. CALL LIGHT WITHIN REACH. PATIENT IN BED. HOURLY ROUNDING PERFORMED.
[2020-02-11] MEDS: INSULIN LISPRO 100 UNIT/1 ML 3ML VIAL SQ SCH ×4 (08:00→21:00)
[2020-02-11] MEDS: METFORMIN HCL 500 MG TAB PO SCH ×2 (08:00→16:40)
[2020-02-11] MEDS ORDERED: PREDNISONE 20 MG TAB PO SCH (09:00)
--- NOTE | 2020-02-11 11:50 | NUR ---
pt up in chair, talking on phone, no distress or c/o pain
[2020-02-11 15:44] LABS: BASOPHILS % 0.1 % (0.0-1.0); HEMATOCRIT 41.2 % (38.2-49.6); LYMPHOCYTES # (AUTO) 1.4 (1.0-3.2); MEAN CORPUSCULAR HEMOGLOBIN 28.5 pg (28-32); MEAN CORPUSCULAR VOLUME 83.7 fL (81-99); MONOCYTES # (AUTO) 0.5 (0.2-0.8); MONOCYTES % 3.9 % (4.4-11.3); NEUTROPHILS # (AUTO) 10.5 (2.1-6.9); NEUTROPHILS % 84.5 % (38.7-80.0); PLATELET COUNT 53 x10e3/uL (140-360); RED BLOOD COUNT 4.92 x10e6/uL (4.3-5.7); RED CELL DISTRIBUTION WIDTH 13.8 % (11.7-14.4)
--- NOTE | 2020-02-11 15:45 | NUR ---
dr mora office paged for plt results
--- NOTE | 2020-02-11 16:55 | NUR ---
no return call from dr mora. office called again to notify did not return call. office re paged dr mora for plt results
--- NOTE | 2020-02-11 19:36 | NUR ---
RECEIVED PT IN BD AOX3 ,DENIES PAIN .RESPIRATIONS ARE EVEN AND UNLABORED .CALL LIGHT WITH IN REACH ,CONTINUE TO MONITOR
--- NOTE | 2020-02-11 20:55 | Discharge Summary ---
ADMITTING DIAGNOSES: 1. 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 2. Type 2 diabetes. 3. Hyperlipidemia. DISCHARGE DIAGNOSES: 1. 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 2. Type 2 diabetes. 3. Hyperlipidemia. BRIEF HISTORY: Mr. Craft is a 49-year-old gentleman sent by his PCP because of CBC that showed a platelet count of 8. The patient had no overt bleeding. His H and H were stable. HOSPITAL COURSE: The patient was admitted to the floor. He was given initially 120 mg of IV Solu-Medrol. He was started on a platelet transfusion. However, he was having a reaction, it was discontinued. He was given 40 mg of prednisone the next day and his platelet count came up to 53,000. Again, the patient had no evidence of bleeding. His H and H were stable with a hemoglobin of 14.0. The rest of his labs were all completely normal. The patient was feeling fine, ambulating, tolerating his diet and was discharged home to resume a diabetic diet. Resume all of his home medications, which included metformin and Farxiga, and Trulicity. Blood sugar slightly elevated at the time of discharge due to the steroids, which he was warned about that. The patient will follow up with his PCP next week for a CBC. We will also follow up with Dr. Beckett for further management of his ITP. MD ALTA Burris/RAMONA /[id number]
[2020-02-11] MEDS ORDERED: DEXAMETHASONE SOD PHOS 10 MG/1 ML VIAL IV SCH (21:00)
--- NOTE | 2020-02-11 22:22 | NUR ---
PT IS DISCHARGED TO HOME .PT WAS STABLE .PT WAS TAKEN O THE CAR BY PCT .GIVEN ALL DISCHARGE INSTRUCTION
== END 2020-02-11 21:20 | disposition home or self-care (01) ==
LOC: ER 23:12 → ERHOLD 23:41 → MED/SURG 02-10 01:40
PROVIDERS: ADMIT Internal Medicine; ATTEND Internal Medicine
DX: D69.3 Immune thrombocytopenic purpura (principal); E78.5 Hyperlipidemia, unspecified; Z11.59 Encounter for screening for other viral diseases; E11.65 Type 2 diabetes mellitus with hyperglycemia
CPT/HCPCS: 36415 ×3; 80048; 80053 ×2; 82550 ×2; 82553 ×2; 82948 ×2; 84484 ×2; 85025 ×3; 85730; 86850; 86900; 86945; 99284; G0378 ×3; J1100; J1200; J2930; J7050; J7512; P9034; U0002